=== PATIENT | female | born 1945 | race Caucasian/White ===

== ENCOUNTER 2018-05-12 11:28 | Outpatient (CLI) | payer MEDICARE | END 2018-05-12 11:29 | disposition home or self-care (01) | LOC: BICRAD 11:28 | PROVIDERS: ATTEND Podiatrist | DX: M79.671 Pain in right foot (principal); M13.871 Other specified arthritis, right ankle and foot; M81.0 Age-related osteoporosis without current pathological fracture ==

== ENCOUNTER 2020-03-26 19:00 | Outpatient (CLI) | payer MEDICARE | END 2020-03-26 19:01 | disposition home or self-care (01) | LOC: SLEEPLAB 19:00 | PROVIDERS: ATTEND Otolaryngology Plastic Surgery within the Head & Neck | DX: G47.33 Obstructive sleep apnea (adult) (pediatric) (principal); R06.83 Snoring; G47.00 Insomnia, unspecified; G47.10 Hypersomnia, unspecified; K21.9 Gastro-esophageal reflux disease without esophagitis; I10 Essential (primary) hypertension | CPT/HCPCS: 95810 ==

== ENCOUNTER 2020-03-30 19:00 | Outpatient (CLI) | payer MEDICARE | END 2020-03-30 19:01 | disposition home or self-care (01) | LOC: SLEEPLAB 19:00 | PROVIDERS: ATTEND Otolaryngology Plastic Surgery within the Head & Neck | DX: G47.33 Obstructive sleep apnea (adult) (pediatric) (principal) | CPT/HCPCS: 95811 ==

== ENCOUNTER 2021-12-13 08:41 | Day surgery (SDC) | payer MEDICARE ==
[2021-12-10 12:21] VITALS: BMI 33.3
[2021-12-13] MEDS ORDERED: EPINEPHrine 1 MG/ML AMP ONE (10:29)
[2021-12-13] MEDS ORDERED: Bacitracin Zinc Ointment 30 gm TUBE ONE (10:29)
[2021-12-13] MEDS ORDERED: Bupivacaine 0.25% 10 ML VIAL ONE (10:29)
[2021-12-13] MEDS ORDERED: Fentanyl 100 MCG/2 ML VIAL ONE (10:36)
[2021-12-13] MEDS ORDERED: cefOXitin 2 GM VIAL ONE (10:40)
[2021-12-13] MEDS ORDERED: Sodium Chloride 0.9% 100 ML ONE (10:41)
[2021-12-13] MEDS ORDERED: Lidocaine 1% PF 5 ML VIAL ONE (10:46)
[2021-12-13] MEDS ORDERED: Rocuronium Bromide 10 MG/ML (10ML VIAL) ONE (10:46)
[2021-12-13] MEDS ORDERED: Dexamethasone 20 MG/5 ML VIAL ONE (10:46)
[2021-12-13] MEDS ORDERED: PROPOFOL 200 MG/20 ML VIAL ONE (10:46)
[2021-12-13] MEDS ORDERED: Ondansetron PF 4 MG/2 ML Vial ONE (10:46)
[2021-12-13] MEDS ORDERED: SUGAMMADEX SODIUM 200 MG/2 ML VIAL ONE (11:37)
== END 2021-12-13 14:35 | disposition home or self-care (01) ==
LOC: SDC 08:41
PROVIDERS: ATTEND Surgery
PROC: 06BY3ZC Excision of Hemorrhoidal Plexus, Percutaneous Approach (ICD-10-PCS; principal; 2021-12-13)
DX: K64.2 Third degree hemorrhoids (principal); I10 Essential (primary) hypertension; Z79.899 Other long term (current) drug therapy; Z88.5 Allergy status to narcotic agent
CPT/HCPCS: 88304; J0171; J0694; J1100; J2405; J2704; J3010; J3490; S0020